=== PATIENT | female | born 1950 | race American Indian/Alaskan Native ===

== ENCOUNTER 2020-01-23 07:54 | Emergency (ER) | payer SELFPAY ==
[2020-01-23] MEDS ORDERED: SODIUM CHLORIDE 0.9% 1000 ML 1,000 ML IV ONE ×4 (08:05→13:40)
[2020-01-23] MEDS ORDERED: SODIUM CHLORIDE 0.9% 1000 ML 2,000 ML ONE (08:05)
--- NOTE | 2020-01-23 08:19 | Emergency Department Report ---
ED General Adult HPI - General Stated complaint: UNRESPONSIVE Time Seen by Provider: 01/23/20 08:04 Source: patient, EMS - History of Present Illness Initial comments: Ms. Rolon is a 69 years old female with a recent kidney transplant 2 weeks ago at [facility]. Patient brought to the hospital via EMS from home.. Family stated that patient was discharged yesterday. Family stated that patient went to the bathroom and when she came back she collapsed. EMS stated that patient was found on the floor gasping for breath. Nasal airway inserted by EMS and patient started on positive pressure with immediate response by the patient. Upon arrival to the ER patient is alert and oriented with oxygen saturation of 100%. Patient initial blood pressure was 80/42 improved significantly with fluids. Patient kept asking for Percocet. Sepsis protocol immediately initiated. - Related Data Allergies Allergy/AdvReac Type Severity Reaction Status Date / Time codeine Allergy Unknown Verified 01/23/20 08:30 ED Review of Systems ROS: Stated complaint: UNRESPONSIVE Other details as noted in HPI Comment: All other systems reviewed and negative Constitutional: denies: chills, fever Respiratory: shortness of breath. denies: cough, SOB with exertion, SOB at rest Cardiovascular: denies: chest pain, palpitations Gastrointestinal: denies: abdominal pain, nausea, vomiting ED Physical Exam - General General appearance: obtunded, in distress - Head Head exam: Present: atraumatic, normocephalic, normal inspection - Eye Eye exam: Present: normal appearance, PERRL - ENT ENT exam: Present: normal exam, mucous membranes dry - Neck Neck exam: Present: normal inspection, full ROM. Absent: tenderness, meningismus - Respiratory Respiratory exam: Present: respiratory distress, rales, rhonchi, decreased breath sounds - Cardiovascular Cardiovascular Exam: Present: regular rate, normal rhythm, normal heart sounds - GI/Abdominal GI/Abdominal exam: Present: soft, normal bowel sounds. Absent: distended, tenderness, guarding, rebound, rigid, diminished bowel sounds, organomegaly, mass, bruit, pulsatile mass, hernia - Extremities Exam Extremities exam: Present: normal inspection, full ROM, normal capillary refill. Absent: pedal edema, calf tenderness - Back Exam Back exam: Present: normal inspection, full ROM. Absent: CVA tenderness (R), CVA tenderness (L) - Neurological Exam Neurological exam: Present: altered, CN II-XII intact - Skin Skin exam: Present: warm, dry, intact, normal color ED Course Vital Signs 01/23/20 01/23/20 01/23/20 08:08 08:14 08:15 Temperature Pulse Rate 94 H 100 H Respiratory 26 H 29 H Rate Blood Pressure 118/59 Blood Pressure 117/55 [Left] O2 Sat by Pulse 100 100 Oximetry 01/23/20 01/23/20 01/23/20 08:30 08:45 09:01 Temperature 93.2 F L Pulse Rate 101 H 151 H Respiratory 25 H 29 H 24 Rate Blood Pressure 99/51 97/49 97/49 Blood Pressure [Left] O2 Sat by Pulse 100 100 83 L Oximetry 01/23/20 01/23/20 01/23/20 09:15 09:25 09:30 Temperature Pulse Rate 116 H 120 H 119 H Respiratory 14 20 Rate Blood Pressure 102/63 102/63 122/73 Blood Pressure [Left] O2 Sat by Pulse 91 100 100 Oximetry 01/23/20 01/23/20 01/23/20 09:41 09:51 10:00 Temperature Pulse Rate 115 H 111 H 105 H Respiratory 20 20 20 Rate Blood Pressure 122/73 95/62 93/64 Blood Pressure [Left] O2 Sat by Pulse 100 100 100 Oximetry 01/23/20 01/23/20 01/23/20 10:11 10:16 10:21 Temperature Pulse Rate 100 H 100 H 99 H Respiratory 20 20 20 Rate Blood Pressure 93/64 100/66 100/66 Blood Pressure [Left] O2 Sat by Pulse 100 100 100 Oximetry 01/23/20 01/23/20 01/23/20 10:30 10:51 11:00 Temperature Pulse Rate 94 H 92 H 94 H Respiratory 20 20 20 Rate Blood Pressure 133/83 144/83 156/96 Blood Pressure [Left] O2 Sat by Pulse 100 100 100 Oximetry 01/23/20 01/23/20 01/23/20 11:15 11:30 11:45 Temperature Pulse Rate 88 91 H 93 H Respiratory 17 19 18 Rate Blood Pressure 144/90 137/84 121/77 Blood Pressure [Left] O2 Sat by Pulse 100 100 100 Oximetry 01/23/20 01/23/20 01/23/20 12:01 12:15 12:30 Temperature Pulse Rate 101 H 93 H 93 H Respiratory 16 14 20 Rate Blood Pressure 121/97 94/62 90/61 Blood Pressure [Left] O2 Sat by Pulse 98 99 100 Oximetry 01/23/20 01/23/20 01/23/20 13:11 13:15 13:30 Temperature 94.5 F L Pulse Rate 94 H 95 H 95 H Respiratory 13 16 12 Rate Blood Pressure 90/61 90/61 85/54 Blood Pressure [Left] O2 Sat by Pulse Oximetry 01/23/20 01/23/20 01/23/20 13:45 14:00 14:15 Temperature Pulse Rate 92 H 92 H 92 H Respiratory 23 15 18 Rate Blood Pressure 87/53 101/60 101/60 Blood Pressure [Left] O2 Sat by Pulse 99 97 99 Oximetry 01/23/20 01/23/20 01/23/20 14:30 14:45 14:50 Temperature Pulse Rate 95 H 98 H 101 H Respiratory 24 23 Rate Blood Pressure 110/64 112/57 110/62 Blood Pressure [Left] O2 Sat by Pulse 99 100 100 Oximetry 01/23/20 01/23/20 01/23/20 15:00 15:15 15:30 Temperature Pulse Rate 101 H 102 H 102 H Respiratory 21 22 20 Rate Blood Pressure 102/60 94/60 96/59 Blood Pressure [Left] O2 Sat by Pulse 99 100 99 Oximetry - Reevaluation(s) Reevaluation #1: 01/23/20 11:00 08:55 AM. I was called to the room by the nurse to evaluate Ms. Rolon as he became unresponsive. Upon arrival patient is not breathing and no pulse. CODE BLUE immediately initiated. Patient started on CPR. ACLS protocol initiated. Patient intubated by me using a glide scope. Patient received 1 round of CPR and 1 mg of epi. Patient also received calcium chloride and sodium bicarbonate for possible hyperkalemia. Patient found to have a hemoglobin of 4. Blood transfusion initiated. For further information please refer to code sheets. Reevaluation #2: 01/23/20 11:47 I discussed the patient with patient daughter Ms. Noa Szymanski with a phone number of [phone]. She stated that her mother was discharged yesterday from the hospital but since she got home she was complaining of pain at the site of the operation. She stated that this morning she woke up and she went to the bathroom but she collapsed before she reached bed. She denied any complaint of chest pain or shortness of breath. She also denied any fever or chills. No nausea or vomiting. I informed Ms. Blackburn about her mother's situation and that her condition is critical and she will need to be transfer to [facility] for further management. - Intubation Time Out Performed: Yes Sedative: Etomidate Paralytic: Rocuronium Laryngoscope: Ric Size: 3 ET Tube Size: 7.5 Tube Secured Depth (cm): 24 Tube Secured Location: teeth Tube Placement Confirmation: visualized tube passing t, equal breath sounds bilat, no breath sounds over epi, confirmation by capnometr Patient Tolerated Procedure: well, no complications Intubation Complications: none ED Medical Decision Making - Lab Data Result diagrams: 01/23/20 14:02 01/23/20 08:37 - EKG Data -: EKG Interpreted by Me EKG shows normal: sinus rhythm Rate: normal - EKG Data Interpretation: no acute changes - Radiology Data Radiology results: report reviewed - Medical Decision Making Ms. Rolon is a 69 years old female with a recent kidney transplant 2 weeks ago at [facility]. Patient brought to the hospital via EMS from home.. Family stated that patient was discharged yesterday. Family stated that patient went to the bathroom and when she came back she collapsed. EMS stated that patient was found on the floor gasping for breath. Nasal airway inserted by EMS and patient started on positive pressure with immediate response by the patient. Upon arrival to the ER patient is alert and oriented with oxygen saturation of 100%. Patient initial blood pressure was 80/42 improved significantly with fluids. Patient kept asking for Percocet. Sepsis protocol immediately initiated. Patient found to have a hemoglobin of 4.5. Patient transfused 2 units of PRBC. Patient received 3 L of normal saline. CT abdomen and pelvis showed a large hematoma in the right hemipelvis causing pressure on the transplanted kidney and intestine causing a small bowel obstruction also. I discussed the patient with Dr. George, automation manager at [facility] and he accepted the patient to be transferred to his service. Critical Care Time: Yes Critical care time in (mins) excluding proc time.: 60 Critical care attestation.: If time is entered above; I have spent that time in minutes in the direct care of this critically ill patient, excluding procedure time. ED Disposition Clinical Impression: Cardiopulmonary arrest, Severe anemia, Sepsis, Intra-abdominal hematoma Disposition: DC/TX-70 ANOTHER TYPE HLTHCARE Is pt being admited?: No Condition: Stable Referrals: PRIMARY CARE, [Primary Care Provider] - 3-5 Days
[2020-01-23 08:58] LABS: Mean Corpuscular HGB Conc 32 % (30-34); Mean Corpuscular Volume 94 fl (79-97); Platelet Count 180 K/mm3 (140-440); Red Cell Distribution Width 15.1 % (13.2-15.2)
[2020-01-23] MEDS ORDERED: EPINEPHrine 1 MG/10 ML SYRINGE IV ONE (09:00)
[2020-01-23] MEDS ORDERED: ROCURONIUM 50 MG/5 ML INJ IV ONE ×2 (09:00→09:09)
[2020-01-23] MEDS ORDERED: CALCIUM CHLORIDE 1,000 MG/10 ML SYRINGE IV ONE (09:00)
[2020-01-23] MEDS ORDERED: ETOMIDATE 20 MG/10 ML INJ IV ONE ×2 (09:00→09:08)
--- NOTE | 2020-01-23 09:08 | XRay Report ---
CHEST 1 VIEW INDICATION / CLINICAL INFORMATION: Dyspnea. COMPARISON: None available. FINDINGS: SUPPORT DEVICES: None. HEART / MEDIASTINUM: Enlarged cardiac silhouette. LUNGS / PLEURA: No confluent infiltrate. Mild central pulmonary vascular congestion. No pneumothorax or pleural effusion. ADDITIONAL FINDINGS: No significant additional findings. IMPRESSION: 1. Findings consistent with congestive heart failure and mild central pulmonary vascular congestion. Signer Name: Franck Concepcion MD Signed: 01/23/2020 9:03 AM Workstation Name: [id number]
[2020-01-23 09:10] LABS: INR 1.2 (0.87-1.13)
[2020-01-23 09:14] LABS: Hemoglobin 4.5 gm/dl (10.1-14.3)
[2020-01-23 09:19] LABS: Calcium 7.9 mg/dL (8.4-10.2)
[2020-01-23 09:21] LABS: Alanine Aminotransferase 57 units/L (7-56); Albumin 2.4 g/dL (3.9-5); Partial Thromboplastin Time 36.4 Sec. (24.2-36.6)
[2020-01-23] MEDS ORDERED: LIP THERAPY VASELINE TP PRN (09:23)
[2020-01-23] MEDS ORDERED: SODIUM CHLORIDE 0.9% 500 ML 500 ML IV ONE (09:23)
[2020-01-23] MEDS ORDERED: MINERAL OIL/PETROLATUM, WHITE OPHTH OINT 3.5 GM OU PRN (09:23)
[2020-01-23] MEDS ORDERED: SODIUM CHLORIDE 0.9% 500 ML 500 ML ONE (09:24)
[2020-01-23 09:36] LABS: Bilirubin,Direct < 0.2 mg/dL (0-0.2)
[2020-01-23] MEDS ORDERED: PIPERACILLIN/TAZOBACTAM 3.375 3.375 GM/50 ML BAG IV ONE (09:43)
[2020-01-23] MEDS ORDERED: SODIUM BICARB 8.4% 50 MEQ/50 ML SYRINGE IV ONE (09:46)
--- NOTE | 2020-01-23 10:25 | XRay Report ---
CHEST 1 VIEW INDICATION / CLINICAL INFORMATION: ETT placement. COMPARISON: 01/23/2020. FINDINGS: SUPPORT DEVICES: Interval placement of ET tube with its tip approximately 2.6 cm above the level the michelle. HEART / MEDIASTINUM: Stable since prior exam. LUNGS / PLEURA: Persistent mild central pulmonary vascular congestion. No pneumothorax. ADDITIONAL FINDINGS: No significant additional findings. IMPRESSION: 1. Interval placement of ET tube with its tip approximately 2.6 cm above level of michelle. 2. Previously noted findings of congestive heart failure mild central pulmonary vascular congestion a re similar. Signer Name: Franck Concepcion MD Signed: 01/23/2020 10:21 AM Workstation Name: [id number]
[2020-01-23 11:08] LABS: Band Neutrophils # (Manual) 1.6 K/mm3; Basophils % (Manual) 0 % (0.0-1.8); Eosinophils % (Manual) 0 % (0.0-4.3); Total Cells Counted 100
[2020-01-23 11:09] LABS: Anisocytosis 1+; Hypochromasia 3+; Macrocytosis Few; Ovalocytes Few; Platelet Estimate Consistent w Auto
[2020-01-23 11:37] LABS: ABG Base Excess -11.3 mmol/L (-2.0-3.0); ABG HCO3 13.5 mmol/L (20.0-26.0); ABG Methemoglobin 0.4 % (0.0-1.5); ABG Oxygen Saturation 99.6 % (95.0-99.0); ABG PCO2 26.3 mm Hg; ABG PH 7.328 pH Units (7.350-7.450)
[2020-01-23 12:07] LABS: Chol/HDL Ratio 1.8 %
--- NOTE | 2020-01-23 13:35 | Cat Scan Report ---
CT HEAD WITHOUT CONTRAST INDICATION / CLINICAL INFORMATION: AMS. TECHNIQUE: All CT scans at this location are performed using CT dose reduction for ALARA by means of automated e xposure control. COMPARISON: Head CT 02/15/2008. FINDINGS: HEMORRHAGE: No evidence of recent intracranial hemorrhage or extra-axial fluid collection. EXTRA-AXIAL SPACES: Cortical sulci and sylvian fissures are mildly enlarged reflecting a degree of pa renchymal volume loss which is within normal limits for the patient's age of 69. Basilar cisterns hav e an unremarkable appearance. VENTRICULAR SYSTEM: The third and lateral ventricles are mildly enlarged reflecting presence of age r elated parenchymal volume loss. CEREBRAL PARENCHYMA: Periventricular and deep white matter lucency is observed. This is probably seco ndary to microvascular ischemic change. There is no indication of recent infarction. A more focal are a of decreased brain parenchymal attenuation is observed in the left gangliocapsular region at the si te of a remote left basal ganglia hematoma which was demonstrated on head CT 02/15/2008. MIDLINE SHIFT OR HERNIATION: There is no mass effect. CEREBELLUM / BRAINSTEM: Brainstem has an unremarkable appearance. Age related cerebellar atrophy is n oted. MIDLINE STRUCTURES:Pituitary gland has an unremarkable appearance. No abnormalities are seen in the p ineal region. INTRACRANIAL VESSELS:Calcified atherosclerotic plaque is present along the course of the cavernous se gments of both internal carotid arteries. Similar findings are seen at the distal vertebral arteries. ORBITS: visualized portions of the orbits have an unremarkable appearance. SOFT TISSUES of HEAD: No significant abnormality. CALVARIUM: Evaluation of bone windows reveals no abnormalities. PARANASAL SINUSES / MASTOID AIR CELLS: Paranasal sinuses are free from inflammatory mucosal disease. Mastoid air cells are normally pneumatized. IMPRESSION: 1. No acute intracranial abnormality. 2. Mild, age-related involutional changes of parenchymal volume loss and microvascular ischemia. Signer Name: Kwame Chatman MD Signed: 01/23/2020 1:30 PM Workstation Name: [id number]
[2020-01-23] MEDS ORDERED: SODIUM CHLORIDE 0.9% 1000 ML 1,000 ML ONE (13:37)
--- NOTE | 2020-01-23 13:43 | Cat Scan Report ---
CT ABDOMEN AND PELVIS WITHOUT CONTRAST INDICATION: ABDOMINAL PAIN. TECHNIQUE: Axial CT images were obtained through the abdomen and pelvis without IV contrast. All CT scans at is location are performed using CT dose reduction for ALARA by means of automated exposure control. COMPARISON: None available. FINDINGS: LOWER CHEST: Tiny left and small right pleural effusions with bibasilar atelectasis LIVER: No significant abnormality. GALLBLADDER: No significant abnormality. BILE DUCTS: No significant abnormality. PANCREAS: No significant abnormality. SPLEEN: No significant abnormality. ADRENALS: No significant abnormality. RIGHT KIDNEY and URETER: Moderately atrophic containing multiple tiny intrarenal vascular calcificati ons and several small acquired cysts. LEFT KIDNEY and URETER: Moderately atrophic containing several acquired cysts, largest of which measu res 3 cm. STOMACH and SMALL BOWEL: Moderately distended stomach containing air-fluid level. Multiple mildly dil ated fluid-filled loops of proximal and mid small bowel with collapse of distal ileum characteristic for partial low-grade distal small bowel obstruction COLON: Collapsed APPENDIX: No significant abnormality. PERITONEUM: No free fluid. No free air. Loculated fluid collection within the right hemipelvis measur es 11.1 x 9.4 cm image 115 and extending into the right flank/right second bilobed collection with he morrhagic layering fluid is seen measuring 7.3 x 11.7 cm image 93. Retroperitoneal space . Moderate s ized hematoma with hematocrit level right lower quadrant subcutaneous soft tissues measures 3.9 x 9.0 cm image 134. LYMPH NODES: No significant adenopathy. AORTA and ARTERIES: No significant abnormality. IVC and VEINS: No significant abnormality. URINARY BLADDER: Slightly collapsed and markedly displaced into the left hemipelvis secondary to the right pelvic sidewall hematoma REPRODUCTIVE ORGANS: 2 cm calcified uterine fibroid ADDITIONAL FINDINGS: Right pelvic transplant kidney contains a double-J stent. No hydronephrosis. SKELETAL SYSTEM: No significant abnormality. IMPRESSION: 1. Large bilobed hematomas within the right hemipelvis extending into the right flank posterior to th e transplant kidney with mass effect upon the transplant kidney and bladder with additional subcutane ous hematoma within the right lower quadrant subcutaneous soft tissues. 2. Right lower quadrant pelvic transplant kidney contains a ureteral stent. 3. Probable partial low-grade distal small bowel obstruction Signer Name: Agustín Mclean MD Signed: 01/23/2020 1:38 PM Workstation Name: [id number]
[2020-01-23 14:16] LABS: Hematocrit 24.6 % (30.3-42.9)
[2020-01-23 15:46] VITALS: BP 96/59
== END 2020-01-23 16:00 | disposition other institution (70) ==
LOC: ED 07:54
DX: I46.9 Cardiac arrest, cause unspecified (principal); D64.9 Anemia, unspecified; A41.89 Other specified sepsis; Z88.4 Allergy status to anesthetic agent
CPT/HCPCS: 31500; 36415; 36430; 70450; 71045; 74176; 80048; 80061; 80076; 82140; 82803; 84484; 85007; 85014; 85018; 85025; 85379; 85610; 85730; 86850; 86900; 86901; 86920; 87040; 87205; 93005; 96361; 96365; 99285; J2543; J2704; J7030; J7040; P9016; 94002